=== PATIENT | male | born 1940 | race African-American/Black ===

== ENCOUNTER 2019-09-09 13:15 | Inpatient (IN) | payer MEDICARE ==
[~2019-09-09] VITALS: Ht 172.7 cm; Wt 66.2 kg
[2019-09-09] MEDS ORDERED: SODIUM CHLORIDE 0.9% 1,000 ML IV ONE (15:38)
[2019-09-09 16:28] LABS: BASOPHILS % 0.6 % (0.0-2.0); EOSINOPHILS % 1.3 % (0.0-5.0); HEMATOCRIT. 35.9 % (42.0-52.0); HEMOGLOBIN. 11.4 g/dL (14.0-18.0); LYMPHOCYTES % 16.6 % (20.0-50.0); MEAN CORPUSCULAR HEMOGLOBIN 28.1 pg (28.0-32.0); MEAN CORPUSCULAR VOLUME 88.5 fL (80.0-94.0); MEAN PLATELET VOLUME 9.2 fl (7.4-10.4); MONOCYTES % 8.7 % (2.0-8.0); NEUTROPHILS % 72.8 % (40.0-76.0); PLATELET 253 x1000/uL (130-400); RED BLOOD CELL COUNT 4.06 mill/uL (4.7-6.1); RED CELL DISTRIBUTION WIDTH 13.7 % (11.6-14.6)
[2019-09-09 16:31] LABS: CHLORIDE 107 mEq/L (98-107)
[2019-09-09 17:41] LABS: CLARITY URINE CLEAR (CLEAR); COLOR URINE YELLOW (YELLOW); KETONES URINE TRACE (NEGATIVE); LEUKOCYTE ESTERASE URINE NEGATIVE (NEGATIVE); NITRITE URINE NEGATIVE (NEGATIVE); OCCULT BLOOD URINE NEGATIVE (NEGATIVE); PH URINE 6.5 (4.5-8.0); PROTEIN URINE NEGATIVE (NEGATIVE); SPECIFIC GRAVITY URINE 1.012 (1.005-1.030); UROBILINOGEN URINE 0.2 E.U./dL (0.2-1.0)
[2019-09-09] MEDS ORDERED: POTASSIUM CHLORIDE 20MEQ TABLET SR PO ONE (17:45)
[2019-09-09] MEDS ORDERED: DOCUSATE SODIUM 100MG CAPSULE PO PRN (19:00)
[2019-09-09] MEDS ORDERED: MAGNESIUM/ALUMINUM HYDROXIDE/SIMETHICONE 30ML UDC PO PRN (19:00)
[2019-09-09] MEDS ORDERED: LORAZEPAM 2MG/ML CPJ IV PRN (19:00)
[2019-09-09] MEDS ORDERED: ACETAMINOPHEN 325MG TABLET PO PRN (19:00)
[2019-09-09] MEDS ORDERED: IPRATROPIUM/ALBUTEROL 0.5-3(2.5)MG/3ML NEB NEB PRN (19:00)
[2019-09-09] MEDS ORDERED: NA PHOS,M-B/NA PHOS,DI-BA ENEMA 118ML PR PRN (19:00)
[2019-09-09] MEDS ORDERED: GUAIFENESIN 200MG/10ML SUGAR FREE UDC PO PRN (19:00)
[2019-09-09] MEDS ORDERED: HYDRALAZINE 20MG/ML VIAL IV PRN (19:00)
[2019-09-09] MEDS ORDERED: MORPHINE SULFATE 2 MG/ML CPJ (NOT FOR IM USE) IV PRN (19:00)
[2019-09-09] MEDS ORDERED: DIPHENHYDRAMINE 50MG/ML VIAL IV PRN (19:00)
[2019-09-09] MEDS ORDERED: ONDANSETRON HCL 4MG/2ML INJ IV PRN (19:00)
[2019-09-09] MEDS ORDERED: DEXTROSE 50% WATER 50ML SYRINGE IV PRN (19:00)
[2019-09-09] MEDS ORDERED: CLONIDINE 0.1MG TABLET PO PRN (19:00)
[2019-09-09] MEDS ORDERED: HYDROCODONE/ACETAMINOPHEN 10/325MG TABLET PO PRN (19:00)
[2019-09-09] MEDS: SODIUM CHLORIDE 0.9% INJ 3ML FLUSH IVF SCH (22:00)
[2019-09-09 22:44] VITALS: BP 148/75
[2019-09-10] VITALS: BP 123/64
[2019-09-10 01:27] LABS: CREATINE KINASE 108 IU/L (39-308); CREATINE KINASE MB FRACTION 1.5 ng/mL (0.5-3.6)
[2019-09-10 04:00] VITALS: BP 133/68
[2019-09-10] MEDS: SODIUM CHLORIDE 0.9% INJ 3ML FLUSH IVF SCH (06:16)
[2019-09-10] MEDS ORDERED: BLOOD SUGAR DIAGNOSTIC STRIP TEST SCH (07:20)
[2019-09-10] MEDS ORDERED: INSULIN LISPRO 100 UNITS/ML SUBCUT SCH (07:50)
[2019-09-10 08:00] VITALS: BP 166/88
[2019-09-10] MEDS ORDERED: ENOXAPARIN 40MG/0.4ML SYR SUBCUT SCH (09:00)
[2019-09-10 09:45] LABS: BASOPHILS % 0.7 % (0.0-2.0); HEMATOCRIT. 36.9 % (42.0-52.0); HEMOGLOBIN. 11.9 g/dL (14.0-18.0); LYMPHOCYTES % 24.4 % (20.0-50.0); MEAN CORPUSCULAR HEMOGLOBIN 28.5 pg (28.0-32.0); MEAN CORPUSCULAR VOLUME 88.5 fL (80.0-94.0); MEAN PLATELET VOLUME 9.2 fl (7.4-10.4); NEUTROPHILS % 60.9 % (40.0-76.0); PLATELET 237 x1000/uL (130-400); RED BLOOD CELL COUNT 4.17 mill/uL (4.7-6.1)
[2019-09-10 09:56] LABS: CHLORIDE 108 mEq/L (98-107)
[2019-09-10 10:04] LABS: LDL CHOLESTEROL 75 mg/dL (5-100)
[2019-09-10 10:05] LABS: CREATINE KINASE 99 IU/L (39-308); CREATINE KINASE MB FRACTION 1.1 ng/mL (0.5-3.6); HDL CHOLESTEROL 60 mg/dL (40-59)
== END 2019-09-10 11:48 | disposition home or self-care (01) | DRG 637 ==
LOC: ER 13:15 → 6WST 17:47 → ENRESERV 20:36 → 6WST 23:35
PROVIDERS: ADMIT Internal Medicine; ATTEND Internal Medicine
DX: E11.649 Type 2 diabetes mellitus with hypoglycemia without coma (principal); G93.41 Metabolic encephalopathy; E87.6 Hypokalemia; I10 Essential (primary) hypertension; I25.10 Atherosclerotic heart disease of native coronary artery without angina pectoris; D64.9 Anemia, unspecified; R79.89 Other specified abnormal findings of blood chemistry
CPT/HCPCS: 36415; 71045; 80053; 80061; 81003; 82550; 82553; 82962; 83036; 83880; 84439; 84443; 84484; 85025; 93005; 93970; 99285; J0360; J1650; J7030

== ENCOUNTER 2019-10-05 13:10 | Emergency (ER) | payer MEDICARE ==
[~2019-10-05] VITALS: Ht 175.3 cm; Wt 65.0 kg
[2019-10-05 14:25] LABS: BASOPHILS % 0.6 % (0.0-2.0); EOSINOPHILS % 0.4 % (0.0-5.0); HEMATOCRIT. 41.2 % (42.0-52.0); HEMOGLOBIN. 13.8 g/dL (14.0-18.0); LYMPHOCYTES % 10.6 % (20.0-50.0); MEAN CORPUSCULAR HEMOGLOBIN 29.4 pg (28.0-32.0); MEAN CORPUSCULAR VOLUME 87.9 fL (80.0-94.0); MONOCYTES % 6.5 % (2.0-8.0); NEUTROPHILS % 81.9 % (40.0-76.0); PLATELET 245 x1000/uL (130-400); RED BLOOD CELL COUNT 4.69 mill/uL (4.7-6.1)
[2019-10-05 14:32] LABS: PROTHROMBIN TIME 11.3 sec (9.6-11.0)
[2019-10-05 14:34] LABS: CHLORIDE 106 mEq/L (98-107)
[2019-10-05 15:50] VITALS: BP 136/92
[2019-10-05] MEDS ORDERED: SODIUM CHLORIDE 0.9% 1,000 ML IV ONE (16:29)
== END 2019-10-05 19:08 | disposition home or self-care (01) ==
LOC: ER 15:02
DX: E11.649 Type 2 diabetes mellitus with hypoglycemia without coma (principal); E86.0 Dehydration; Z79.84 Long term (current) use of oral hypoglycemic drugs
CPT/HCPCS: 36415; 71045; 80053; 82962; 84484; 85025; 85610; 93005; 96360; 99285; J7030

== ENCOUNTER 2019-11-11 13:18 | Inpatient (IN) | payer MEDICARE ==
[~2019-11-11] VITALS: Ht 175.3 cm; Wt 59.0 kg
[2019-11-11] MEDS ORDERED: SODIUM CHLORIDE 0.9% 1,000 ML IV ONE (13:45)
[2019-11-11 13:48] LABS: BASOPHILS % 0.5 % (0.0-2.0); EOSINOPHILS % 0.3 % (0.0-5.0); HEMATOCRIT. 36.8 % (42.0-52.0); HEMOGLOBIN. 11.8 g/dL (14.0-18.0); LYMPHOCYTES % 25.6 % (20.0-50.0); MEAN CORPUSCULAR HEMOGLOBIN 28.8 pg (28.0-32.0); MEAN CORPUSCULAR VOLUME 89.5 fL (80.0-94.0); MEAN PLATELET VOLUME 9.2 fl (7.4-10.4); NEUTROPHILS % 62.6 % (40.0-76.0); PLATELET 202 x1000/uL (130-400); RED BLOOD CELL COUNT 4.11 mill/uL (4.7-6.1); RED CELL DISTRIBUTION WIDTH 14.4 % (11.6-14.6)
[2019-11-11 13:55] LABS: CHLORIDE 104 mEq/L (98-107)
[2019-11-11 13:56] LABS: PROTHROMBIN TIME 11.1 sec (9.6-11.0)
[2019-11-11] MEDS ORDERED: DEXTROSE 5% WATER 1,000 ML IV ONE (17:00)
[2019-11-11 21:25] VITALS: BP 134/78
[2019-11-11 21:29] VITALS: BP 134/78
[2019-11-11] MEDS ORDERED: GUAIFENESIN 200MG/10ML SUGAR FREE UDC PO PRN (21:45)
[2019-11-11] MEDS ORDERED: DIPHENHYDRAMINE 50MG/ML VIAL IV PRN (21:45)
[2019-11-11] MEDS ORDERED: DOCUSATE SODIUM 100MG CAPSULE PO PRN (21:45)
[2019-11-11] MEDS ORDERED: MORPHINE SULFATE 2 MG/ML CPJ (NOT FOR IM USE) IV PRN (21:45)
[2019-11-11] MEDS ORDERED: ACETAMINOPHEN 325MG TABLET PO PRN (21:45)
[2019-11-11] MEDS ORDERED: CLONIDINE 0.1MG TABLET PO PRN (21:45)
[2019-11-11] MEDS ORDERED: IPRATROPIUM/ALBUTEROL 0.5-3(2.5)MG/3ML NEB HHN PRN (21:45)
[2019-11-11] MEDS ORDERED: LORAZEPAM 2MG/ML CPJ IV PRN (21:45)
[2019-11-11] MEDS ORDERED: MAGNESIUM/ALUMINUM HYDROXIDE/SIMETHICONE 30ML UDC PO PRN (21:45)
[2019-11-11] MEDS ORDERED: HYDRALAZINE 20MG/ML VIAL IV PRN (21:45)
[2019-11-11] MEDS ORDERED: ONDANSETRON HCL 4MG/2ML INJ IV PRN (21:45)
[2019-11-11] MEDS ORDERED: HYDROCODONE/ACETAMINOPHEN 10/325MG TABLET PO PRN (21:45)
[2019-11-11] MEDS ORDERED: FURO20TA4 PO (21:54)
[2019-11-11] MEDS ORDERED: LABE200T28 PO (21:54)
[2019-11-11] MEDS ORDERED: GLYB6TAB3 PO (21:54)
[2019-11-11] MEDS ORDERED: GLIM4TAB36 PO (21:54)
[2019-11-11] MEDS ORDERED: TRIA1TAB94 PO (21:54)
[2019-11-11] MEDS: DEXT 5%/0.45% NACL 1000ML 1,000 ML IV SCH (22:28)
[2019-11-11 23:54] VITALS: BP 135/74
[2019-11-12 00:12] LABS: CREATINE KINASE 459 IU/L (39-308)
[2019-11-12 00:13] LABS: CREATINE KINASE MB FRACTION 2.2 ng/mL (0.5-3.6)
[2019-11-12 04:00] VITALS: BP 141/83
[2019-11-12] MEDS: SODIUM CHLORIDE 0.9% INJ 3ML FLUSH IVF SCH ×3 (05:51→20:40)
[2019-11-12 06:54] LABS: BASOPHILS % 0.4 % (0.0-2.0); EOSINOPHILS % 3.7 % (0.0-5.0); HEMATOCRIT. 31.1 % (42.0-52.0); HEMOGLOBIN. 10.2 g/dL (14.0-18.0); LYMPHOCYTES % 31.5 % (20.0-50.0); MEAN CORPUSCULAR VOLUME 88.2 fL (80.0-94.0); MEAN PLATELET VOLUME 9.5 fl (7.4-10.4); MONOCYTES % 14.1 % (2.0-8.0); NEUTROPHILS % 50.3 % (40.0-76.0); PLATELET 202 x1000/uL (130-400); RED BLOOD CELL COUNT 3.52 mill/uL (4.7-6.1); RED CELL DISTRIBUTION WIDTH 14.5 % (11.6-14.6)
[2019-11-12 06:59] LABS: CHLORIDE 108 mEq/L (98-107)
[2019-11-12 07:16] LABS: CREATINE KINASE 378 IU/L (39-308)
[2019-11-12 07:18] LABS: CREATINE KINASE MB FRACTION 1.7 ng/mL (0.5-3.6)
[2019-11-12 08:00] VITALS: BP 140/56
[2019-11-12] MEDS ORDERED: POTASSIUM CHLORIDE 20MEQ TABLET SR PO SCH (08:00)
[2019-11-12] MEDS: ENOXAPARIN 40MG/0.4ML SYR SUBCUT SCH (08:32)
[2019-11-12] MEDS: BLOOD SUGAR DIAGNOSTIC STRIP TEST SCH ×6 (11:53→20:40)
[2019-11-12 12:00] VITALS: BP 114/56
[2019-11-12] MEDS: INSULIN LISPRO 100 UNITS/ML SUBCUT SCH ×3 (13:10→20:47)
[2019-11-12] MEDS ORDERED: DEXTROSE 50% WATER 50ML SYRINGE IV PRN (13:15)
[2019-11-12 15:47] VITALS: BP 119/89
[2019-11-12 16:00] VITALS: BP 117/62
[2019-11-12] MEDS: DEXT 5%/0.45% NACL 1000ML 1,000 ML IV SCH (17:59)
[2019-11-12 19:56] VITALS: BP 131/70
[2019-11-13 00:05] VITALS: BP 127/62
[2019-11-13 04:00] VITALS: BP 133/72
[2019-11-13] MEDS: BLOOD SUGAR DIAGNOSTIC STRIP TEST SCH ×8 (05:32→21:00)
[2019-11-13] MEDS: SODIUM CHLORIDE 0.9% INJ 3ML FLUSH IVF SCH ×3 (05:32→21:30)
[2019-11-13 06:04] LABS: BASOPHILS % 0.6 % (0.0-2.0); HEMATOCRIT. 27.8 % (42.0-52.0); LYMPHOCYTES % 35.2 % (20.0-50.0); MEAN CORPUSCULAR HEMOGLOBIN 28.9 pg (28.0-32.0); MEAN CORPUSCULAR VOLUME 88.9 fL (80.0-94.0); MEAN PLATELET VOLUME 9.3 fl (7.4-10.4); MONOCYTES % 13.3 % (2.0-8.0); NEUTROPHILS % 47.9 % (40.0-76.0); PLATELET 189 x1000/uL (130-400); RED BLOOD CELL COUNT 3.13 mill/uL (4.7-6.1); RED CELL DISTRIBUTION WIDTH 14.3 % (11.6-14.6)
[2019-11-13 06:23] LABS: CHLORIDE 109 mEq/L (98-107)
[2019-11-13 08:00] VITALS: BP 128/63
[2019-11-13] MEDS: INSULIN LISPRO 100 UNITS/ML SUBCUT SCH ×4 (08:10→21:00)
[2019-11-13] MEDS: ENOXAPARIN 40MG/0.4ML SYR SUBCUT SCH (08:52)
[2019-11-13 12:00] VITALS: BP 140/71
[2019-11-13] MEDS: DEXT 5%/0.45% NACL 1000ML 1,000 ML IV SCH (13:56)
[2019-11-13 16:00] VITALS: BP 130/68
[2019-11-13 20:00] VITALS: BP 151/72
[2019-11-14 00:05] VITALS: BP 130/67
[2019-11-14 04:00] VITALS: BP 138/74
[2019-11-14] MEDS: BLOOD SUGAR DIAGNOSTIC STRIP TEST SCH ×6 (05:33→20:36)
[2019-11-14] MEDS: SODIUM CHLORIDE 0.9% INJ 3ML FLUSH IVF SCH ×2 (05:33→15:57)
[2019-11-14 08:00] VITALS: BP 135/73
[2019-11-14] MEDS: INSULIN LISPRO 100 UNITS/ML SUBCUT SCH ×4 (08:10→20:36)
[2019-11-14] MEDS: ENOXAPARIN 40MG/0.4ML SYR SUBCUT SCH (08:22)
[2019-11-14] MEDS: DEXT 5%/0.45% NACL 1000ML 1,000 ML IV SCH (09:55)
[2019-11-14 12:00] VITALS: BP 138/76
[2019-11-14 20:00] VITALS: BP 10/74
[2019-11-15] VITALS: BP 147/70
[2019-11-15] MEDS: DEXT 5%/0.45% NACL 1000ML 1,000 ML IV SCH (01:13)
[2019-11-15 04:00] VITALS: BP 136/72
[2019-11-15] MEDS: BLOOD SUGAR DIAGNOSTIC STRIP TEST SCH ×3 (06:00→07:20)
[2019-11-15] MEDS: INSULIN LISPRO 100 UNITS/ML SUBCUT SCH (07:38)
[2019-11-15 08:00] VITALS: BP 128/68
[2019-11-15] MEDS: ENOXAPARIN 40MG/0.4ML SYR SUBCUT SCH (09:00)
[2019-11-15 09:34] VITALS: BP 128/68
== END 2019-11-15 11:15 | disposition home or self-care (01) | DRG 637 ==
LOC: ER 13:34 → 7WST 17:01 → EDBEDREQSVC 17:02 → EDBEDREQ 17:02 → EDBEDREQTM 17:02 → ENRESERV 18:00 → 6EST 11-14 23:40
PROVIDERS: ADMIT Internal Medicine; ATTEND Internal Medicine
DX: E11.649 Type 2 diabetes mellitus with hypoglycemia without coma (principal); G93.41 Metabolic encephalopathy; E46 Unspecified protein-calorie malnutrition; I10 Essential (primary) hypertension; K56.41 Fecal impaction; N32.89 Other specified disorders of bladder; K44.9 Diaphragmatic hernia without obstruction or gangrene; Z79.84 Long term (current) use of oral hypoglycemic drugs; Z79.899 Other long term (current) drug therapy
CPT/HCPCS: 36415; 71045; 74176; 80048; 80053; 82550; 82553; 82962; 83036; 83605; 84484; 85025; 86850; 86900; 93005; 97162; 99291; J1650; J1815; J7030; J7070

== ENCOUNTER 2020-05-27 22:36 | Inpatient (IN) | payer MEDICARE, OTHER ==
[~2020-05-27] VITALS: Ht 175.3 cm; Wt 58.5 kg
[~2020-05-27 22:36] MED LIST: FURO20TA4 PO; GLIM4TAB36 PO; LABE200T28 PO; TRIA1TAB94 PO
[2020-05-27] MEDS ORDERED: ONDANSETRON HCL 4MG/2ML INJ IV STA (23:06)
[2020-05-27] MEDS ORDERED: SODIUM CHLORIDE 0.9% 1,000 ML IV ONE (23:15)
[2020-05-28 00:09] LABS: BASOPHILS % 0.4 % (0.0-2.0); EOSINOPHILS % 0.7 % (0.0-5.0); HEMATOCRIT. 34.6 % (42.0-52.0); HEMOGLOBIN. 11.4 g/dL (14.0-18.0); LYMPHOCYTES % 18.9 % (20.0-50.0); MEAN CORPUSCULAR HEMOGLOBIN 29.3 pg (28.0-32.0); MEAN CORPUSCULAR VOLUME 89.3 fL (80.0-94.0); MEAN PLATELET VOLUME 10.4 fl (7.4-10.4); MONOCYTES % 10.8 % (2.0-8.0); NEUTROPHILS % 69.2 % (40.0-76.0); PLATELET 179 x1000/uL (130-400); RED BLOOD CELL COUNT 3.88 mill/uL (4.7-6.1); RED CELL DISTRIBUTION WIDTH 14.5 % (11.6-14.6)
[2020-05-28 00:16] LABS: CHLORIDE 107 mEq/L (98-107)
[2020-05-28 00:23] LABS: INR 1.1; PROTHROMBIN TIME 11.3 sec (9.6-11.0)
[2020-05-28] MEDS ORDERED: MAGNESIUM CITRATE 300ML SOLUTION PO NR (01:45)
[2020-05-28 03:07] LABS: CLARITY URINE CLEAR (CLEAR); COLOR URINE YELLOW (YELLOW); KETONES URINE NEGATIVE (NEGATIVE); LEUKOCYTE ESTERASE URINE NEGATIVE (NEGATIVE); NITRITE URINE NEGATIVE (NEGATIVE); OCCULT BLOOD URINE TRACE (NEGATIVE); PH URINE 5.5 (4.5-8.0); PROTEIN URINE 2+ (NEGATIVE); SPECIFIC GRAVITY URINE 1.015 (1.005-1.030); UROBILINOGEN URINE 0.2 E.U./dL (0.2-1.0)
[2020-05-28] MEDS ORDERED: DOCUSATE SODIUM 100MG CAPSULE PO PRN (13:15)
[2020-05-28] MEDS ORDERED: ACETAMINOPHEN 325MG TABLET PO PRN (13:15)
[2020-05-28] MEDS ORDERED: MAGNESIUM/ALUMINUM HYDROXIDE/SIMETHICONE 30ML UDC PO PRN (13:15)
[2020-05-28] MEDS ORDERED: GUAIFENESIN 200MG/10ML SUGAR FREE UDC PO PRN (13:15)
[2020-05-28] MEDS ORDERED: HYDROCODONE/ACETAMINOPHEN 5/325MG TABLET PO PRN (13:15)
[2020-05-28] MEDS ORDERED: CLONIDINE 0.1MG TABLET PO PRN (13:15)
[2020-05-28] MEDS ORDERED: ONDANSETRON HCL 4MG/2ML INJ IV PRN (13:15)
[2020-05-28] MEDS ORDERED: POTASSIUM CHLORIDE 20MEQ TABLET SR PO NR (13:30)
[2020-05-28] MEDS: SODIUM CHLORIDE 0.9% 1,000 ML IV SCH ×2 (14:34→21:57)
[2020-05-28] MEDS: GLIMEPIRIDE 2MG TABLET PO SCH (14:51)
[2020-05-28] MEDS: TAMSULOSIN HCL 0.4MG SR CAPSULE PO SCH (14:51)
[2020-05-28] MEDS: ENOXAPARIN 40MG/0.4ML SYR SUBCUT SCH (14:52)
[2020-05-28] MEDS ORDERED: NA PHOS,M-B/NA PHOS,DI-BA ENEMA 118ML PR ONE (16:45)
[2020-05-28] MEDS ORDERED: SORBITOL 70% SOLN 30ML PO NR (17:00)
[2020-05-28] MEDS ORDERED: BISACODYL 5MG TABLET PO SCH (17:00)
[2020-05-28] MEDS: DOCUSATE SODIUM 100MG CAPSULE PO SCH (17:00)
[2020-05-28] MEDS: FINASTERIDE 5MG TABLET PO SCH (18:44)
[2020-05-28 20:30] VITALS: BP 147/73
[2020-05-28] MEDS: LABETALOL HCL 200MG TABLET PO SCH (21:54)
[2020-05-29] VITALS: BP 141/75
[2020-05-29 04:00] VITALS: BP 133/73
[2020-05-29] MEDS: BLOOD SUGAR DIAGNOSTIC STRIP TEST SCH ×4 (07:02→20:56)
[2020-05-29 07:10] LABS: BASOPHILS % 0.6 % (0.0-2.0); EOSINOPHILS % 3.8 % (0.0-5.0); HEMATOCRIT. 30.5 % (42.0-52.0); HEMOGLOBIN. 10.1 g/dL (14.0-18.0); LYMPHOCYTES % 24.7 % (20.0-50.0); MEAN CORPUSCULAR HEMOGLOBIN 29.2 pg (28.0-32.0); MEAN CORPUSCULAR VOLUME 88.1 fL (80.0-94.0); MEAN PLATELET VOLUME 10.3 fl (7.4-10.4); MONOCYTES % 10.7 % (2.0-8.0); NEUTROPHILS % 60.2 % (40.0-76.0); PLATELET 139 x1000/uL (130-400); RED BLOOD CELL COUNT 3.46 mill/uL (4.7-6.1); RED CELL DISTRIBUTION WIDTH 14.1 % (11.6-14.6)
[2020-05-29 07:38] LABS: CHLORIDE 112 mEq/L (98-107)
[2020-05-29 07:43] LABS: LDL CHOLESTEROL 60 mg/dL (5-100)
[2020-05-29 07:45] LABS: HDL CHOLESTEROL 54 mg/dL (40-59)
[2020-05-29] MEDS: INSULIN LISPRO 100 UNITS/ML SUBCUT SCH ×4 (07:50→21:00)
[2020-05-29 08:00] VITALS: BP 127/80
[2020-05-29] MEDS: TAMSULOSIN HCL 0.4MG SR CAPSULE PO SCH (08:49)
[2020-05-29] MEDS: GLIMEPIRIDE 2MG TABLET PO SCH (08:50)
[2020-05-29] MEDS: DOCUSATE SODIUM 100MG CAPSULE PO SCH ×2 (08:50→16:32)
[2020-05-29] MEDS: FINASTERIDE 5MG TABLET PO SCH (08:51)
[2020-05-29] MEDS: LABETALOL HCL 200MG TABLET PO SCH ×2 (08:51→20:55)
[2020-05-29] MEDS: SODIUM CHLORIDE 0.9% 1,000 ML IV SCH (08:52)
[2020-05-29] MEDS ORDERED: BISACODYL 5MG TABLET PO ONE (09:00)
[2020-05-29] MEDS ORDERED: INFLUENZA VACCINE 05/PF 0.5 ML VIAL IM ONE (10:00)
[2020-05-29] MEDS ORDERED: BISACODYL 5MG TABLET PO PRN (11:45)
[2020-05-29 12:00] VITALS: BP 120/77
[2020-05-29] MEDS: DEXT 5%/0.45% NACL KCL 10MEQ/L 1,000 ML IV SCH (12:57)
[2020-05-29] MEDS: ENOXAPARIN 40MG/0.4ML SYR SUBCUT SCH (14:02)
[2020-05-29] MEDS ORDERED: BISACODYL 5MG TABLET PO NR (15:00)
[2020-05-29 16:00] VITALS: BP 122/70
[2020-05-29 20:00] VITALS: BP 136/65
[2020-05-29] MEDS: SENNOSIDES/DOCUSATE SOD 8.6/50MG TABLET PO SCH (20:55)
[2020-05-29] MEDS: DEXTROSE 50% WATER 50ML SYRINGE IV PRN (21:59)
[2020-05-30] VITALS (7 sets, daily range): BP systolic 98–159; BP diastolic 67–81
[2020-05-30] MEDS: DEXT 5%/0.45% NACL KCL 10MEQ/L 1,000 ML IV SCH ×2 (03:23→14:36)
[2020-05-30 06:10] LABS: CHLORIDE 109 mEq/L (98-107)
[2020-05-30 06:13] LABS: BASOPHILS % 0.4 % (0.0-2.0); EOSINOPHILS % 2.6 % (0.0-5.0); HEMATOCRIT. 27.7 % (42.0-52.0); HEMOGLOBIN. 9.2 g/dL (14.0-18.0); LYMPHOCYTES % 22.4 % (20.0-50.0); MEAN CORPUSCULAR HEMOGLOBIN 29.1 pg (28.0-32.0); MEAN PLATELET VOLUME 10.1 fl (7.4-10.4); MONOCYTES % 11.4 % (2.0-8.0); NEUTROPHILS % 63.2 % (40.0-76.0); PLATELET 142 x1000/uL (130-400); RED BLOOD CELL COUNT 3.15 mill/uL (4.7-6.1); RED CELL DISTRIBUTION WIDTH 14.2 % (11.6-14.6)
[2020-05-30] MEDS: DEXTROSE 50% WATER 50ML SYRINGE IV PRN ×2 (06:57→14:36)
[2020-05-30] MEDS: BLOOD SUGAR DIAGNOSTIC STRIP TEST SCH ×4 (06:57→20:17)
[2020-05-30] MEDS: INSULIN LISPRO 100 UNITS/ML SUBCUT SCH ×4 (07:39→20:17)
[2020-05-30] MEDS ORDERED: KCL 20MEQ/100ML PREMIX 100 ML IV ONE (08:00)
[2020-05-30] MEDS ORDERED: EZ-HD SUSPENSION(BARIUM SULFATE 340GM) PO ONE (08:35)
[2020-05-30] MEDS ORDERED: BARIUM SULFATE 176 GM SUSP.RECON ONE ×2 (08:35→10:01)
[2020-05-30] MEDS: LABETALOL HCL 200MG TABLET PO SCH ×2 (09:00→20:16)
[2020-05-30] MEDS: DOCUSATE SODIUM 100MG CAPSULE PO SCH ×2 (09:00→17:00)
[2020-05-30] MEDS: TAMSULOSIN HCL 0.4MG SR CAPSULE PO SCH (09:00)
[2020-05-30] MEDS: FINASTERIDE 5MG TABLET PO SCH (09:00)
[2020-05-30] MEDS: GLIMEPIRIDE 2MG TABLET PO SCH (09:00)
[2020-05-30] MEDS: ENOXAPARIN 40MG/0.4ML SYR SUBCUT SCH (14:36)
[2020-05-30 16:11] LABS: ETHANOL BLOOD < 10 mg/dL
[2020-05-30 16:16] LABS: CREATINE KINASE 107 IU/L (39-308); T4 FREE 1.08 ng/dL (0.76-1.46)
[2020-05-30 16:20] LABS: FOLIC ACID (FOLATE) SERUM 13.2 ng/mL (>5.38)
[2020-05-30 18:25] LABS: *AMPHETAMINES SCREEN URINE NEGATIVE (NEGATIVE); *BARBITURATES SCREEN URINE NEGATIVE (NEGATIVE); *BENZODIAZEPINES SCREEN URINE NEGATIVE (NEGATIVE); *COCAINE SCREEN URINE NEGATIVE (NEGATIVE); CANNABINOID URINE SCREEN NEGATIVE (NEGATIVE); PHENCYCLIDINE URINE SCREEN NEGATIVE (NEGATIVE)
[2020-05-30 18:26] LABS: METHADONE URINE SCREEN NEGATIVE (NEGATIVE); OPIATES URINE SCREEN NEGATIVE (NEGATIVE)
[2020-05-30] MEDS: SENNOSIDES/DOCUSATE SOD 8.6/50MG TABLET PO SCH (20:16)
[2020-05-31] VITALS: BP 129/67
[2020-05-31] MEDS: DEXT 5%/0.45% NACL KCL 10MEQ/L 1,000 ML IV SCH ×3 (03:45→23:42)
[2020-05-31 04:00] VITALS: BP 140/67
[2020-05-31] MEDS: DEXTROSE 50% WATER 50ML SYRINGE IV PRN (06:00)
[2020-05-31] MEDS: BLOOD SUGAR DIAGNOSTIC STRIP TEST SCH ×4 (07:20→20:20)
[2020-05-31 07:23] LABS: BASOPHILS % 0.2 % (0.0-2.0); EOSINOPHILS % 2.8 % (0.0-5.0); HEMATOCRIT. 29.1 % (42.0-52.0); HEMOGLOBIN. 9.7 g/dL (14.0-18.0); LYMPHOCYTES % 15.2 % (20.0-50.0); MEAN CORPUSCULAR HEMOGLOBIN 29.4 pg (28.0-32.0); MEAN CORPUSCULAR VOLUME 88.6 fL (80.0-94.0); MEAN PLATELET VOLUME 10.5 fl (7.4-10.4); MONOCYTES % 10.5 % (2.0-8.0); NEUTROPHILS % 71.3 % (40.0-76.0); PLATELET 145 x1000/uL (130-400); RED BLOOD CELL COUNT 3.28 mill/uL (4.7-6.1)
[2020-05-31 07:46] LABS: CHLORIDE 106 mEq/L (98-107)
[2020-05-31] MEDS: INSULIN LISPRO 100 UNITS/ML SUBCUT SCH ×4 (07:50→20:20)
[2020-05-31 08:00] VITALS: BP 124/66
[2020-05-31] MEDS: TAMSULOSIN HCL 0.4MG SR CAPSULE PO SCH (09:00)
[2020-05-31] MEDS: DOCUSATE SODIUM 100MG CAPSULE PO SCH ×2 (09:07→17:48)
[2020-05-31] MEDS: FINASTERIDE 5MG TABLET PO SCH (09:08)
[2020-05-31] MEDS: LABETALOL HCL 200MG TABLET PO SCH ×2 (09:08→21:03)
[2020-05-31] MEDS ORDERED: POTASSIUM CHLORIDE 20MEQ TABLET SR PO NR (10:45)
[2020-05-31] MEDS: POTASSIUM CHLORIDE 20MEQ TABLET SR PO SCH (11:30)
[2020-05-31 12:00] VITALS: BP 125/61
[2020-05-31] MEDS: MAGNESIUM OXIDE 400MG TABLET PO SCH (12:41)
[2020-05-31] MEDS: ENOXAPARIN 40MG/0.4ML SYR SUBCUT SCH (14:37)
[2020-05-31 16:00] VITALS: BP 137/64
[2020-05-31 20:00] VITALS: BP 127/68
[2020-05-31] MEDS: SENNOSIDES/DOCUSATE SOD 8.6/50MG TABLET PO SCH (21:03)
[2020-06-01] VITALS: BP 148/75
[2020-06-01 04:00] VITALS: BP 138/66
[2020-06-01 06:31] LABS: HEMATOCRIT. 28.4 % (42.0-52.0); HEMOGLOBIN. 9.6 g/dL (14.0-18.0); MEAN CORPUSCULAR HEMOGLOBIN 29.5 pg (28.0-32.0); MEAN CORPUSCULAR VOLUME 87.4 fL (80.0-94.0); MEAN PLATELET VOLUME 10.6 fl (7.4-10.4); PLATELET 148 x1000/uL (130-400); RED BLOOD CELL COUNT 3.25 mill/uL (4.7-6.1); RED CELL DISTRIBUTION WIDTH 14.3 % (11.6-14.6)
[2020-06-01] MEDS: BLOOD SUGAR DIAGNOSTIC STRIP TEST SCH ×4 (06:44→21:27)
[2020-06-01 06:58] LABS: CHLORIDE 108 mEq/L (98-107)
[2020-06-01] MEDS: INSULIN LISPRO 100 UNITS/ML SUBCUT SCH ×4 (07:50→21:00)
[2020-06-01 08:00] VITALS: BP 144/74
[2020-06-01 09:07] LABS: PLATELET ESTIMATE NORMAL
[2020-06-01] MEDS: FINASTERIDE 5MG TABLET PO SCH (09:08)
[2020-06-01] MEDS: TAMSULOSIN HCL 0.4MG SR CAPSULE PO SCH (09:08)
[2020-06-01] MEDS: DOCUSATE SODIUM 100MG CAPSULE PO SCH ×2 (09:09→17:45)
[2020-06-01] MEDS: LABETALOL HCL 200MG TABLET PO SCH ×2 (09:09→21:28)
[2020-06-01] MEDS: MAGNESIUM OXIDE 400MG TABLET PO SCH (09:09)
[2020-06-01] MEDS: POTASSIUM CHLORIDE 20MEQ TABLET SR PO SCH (09:15)
[2020-06-01 12:00] VITALS: BP 134/68
[2020-06-01 16:00] VITALS: BP 123/66
[2020-06-01 20:00] VITALS: BP 127/68
[2020-06-01] MEDS: SENNOSIDES/DOCUSATE SOD 8.6/50MG TABLET PO SCH (21:27)
[2020-06-01] MEDS: DEXT 5%/0.45% NACL KCL 10MEQ/L 1,000 ML IV SCH (21:33)
[2020-06-02] VITALS (8 sets, daily range): BP systolic 135–154; BP diastolic 70–80
[2020-06-02] MEDS: BLOOD SUGAR DIAGNOSTIC STRIP TEST SCH ×4 (06:36→21:07)
[2020-06-02] MEDS: INSULIN LISPRO 100 UNITS/ML SUBCUT SCH ×4 (07:50→21:00)
[2020-06-02] MEDS: POTASSIUM CHLORIDE 20MEQ TABLET SR PO SCH (09:26)
[2020-06-02] MEDS: FINASTERIDE 5MG TABLET PO SCH (09:26)
[2020-06-02] MEDS: LABETALOL HCL 200MG TABLET PO SCH ×2 (09:26→21:11)
[2020-06-02] MEDS: DOCUSATE SODIUM 100MG CAPSULE PO SCH ×2 (09:27→17:00)
[2020-06-02] MEDS: TAMSULOSIN HCL 0.4MG SR CAPSULE PO SCH (09:27)
[2020-06-02] MEDS: DEXT 5%/0.45% NACL KCL 10MEQ/L 1,000 ML IV SCH ×2 (09:27→21:07)
[2020-06-02] MEDS: MAGNESIUM OXIDE 400MG TABLET PO SCH (09:27)
[2020-06-02 18:33] LABS: HEPATITIS B SURFACE ANTIGEN NEGATIVE
[2020-06-02 19:03] LABS: HEPATITIS A AB IGM NEGATIVE (NEGATIVE)
[2020-06-02] MEDS: SENNOSIDES/DOCUSATE SOD 8.6/50MG TABLET PO SCH (21:11)
[2020-06-02] MEDS ORDERED: IOHEXOL-300 100 ML BOTTLE ONE (23:15)
[2020-06-03] VITALS (7 sets, daily range): BP systolic 127–147; BP diastolic 67–77
[2020-06-03] MEDS: BLOOD SUGAR DIAGNOSTIC STRIP TEST SCH ×4 (06:55→21:13)
[2020-06-03] MEDS: INSULIN LISPRO 100 UNITS/ML SUBCUT SCH ×4 (07:50→21:00)
[2020-06-03] MEDS: POTASSIUM CHLORIDE 20MEQ TABLET SR PO SCH (08:59)
[2020-06-03] MEDS: DOCUSATE SODIUM 100MG CAPSULE PO SCH ×2 (08:59→17:26)
[2020-06-03] MEDS: MAGNESIUM OXIDE 400MG TABLET PO SCH (08:59)
[2020-06-03] MEDS: TAMSULOSIN HCL 0.4MG SR CAPSULE PO SCH (08:59)
[2020-06-03] MEDS: FINASTERIDE 5MG TABLET PO SCH (08:59)
[2020-06-03] MEDS: LABETALOL HCL 200MG TABLET PO SCH ×2 (09:00→21:21)
[2020-06-03] MEDS: DEXT 5%/0.45% NACL KCL 10MEQ/L 1,000 ML IV SCH (12:46)
[2020-06-03] MEDS ORDERED: SORBITOL 70% SOLN 30ML PO PRN (15:15)
[2020-06-03] MEDS: SENNOSIDES/DOCUSATE SOD 8.6/50MG TABLET PO SCH (21:20)
[2020-06-03] MEDS ORDERED: MINERAL OIL ENEMA 133ML PR NR (21:30)
[2020-06-04 04:00] VITALS: BP 142/69
[2020-06-04] MEDS: DEXT 5%/0.45% NACL KCL 10MEQ/L 1,000 ML IV SCH (06:34)
[2020-06-04] MEDS: BLOOD SUGAR DIAGNOSTIC STRIP TEST SCH ×2 (06:34→12:25)
[2020-06-04] MEDS: INSULIN LISPRO 100 UNITS/ML SUBCUT SCH ×2 (06:39→12:36)
[2020-06-04 08:00] VITALS: BP 135/63
[2020-06-04] MEDS: DOCUSATE SODIUM 100MG CAPSULE PO SCH (09:40)
[2020-06-04] MEDS: TAMSULOSIN HCL 0.4MG SR CAPSULE PO SCH (09:40)
[2020-06-04] MEDS: POTASSIUM CHLORIDE 20MEQ TABLET SR PO SCH (09:40)
[2020-06-04] MEDS: MAGNESIUM OXIDE 400MG TABLET PO SCH (09:40)
[2020-06-04] MEDS: FINASTERIDE 5MG TABLET PO SCH (09:41)
[2020-06-04] MEDS: LABETALOL HCL 200MG TABLET PO SCH (09:41)
[2020-06-04] MEDS ORDERED: LACT10SO6 MT (10:23)
[2020-06-04] MEDS ORDERED: FINA5TAB3 MT (10:23)
[2020-06-04] MEDS ORDERED: TAMS-11 MT (10:23)
[2020-06-04] MEDS ORDERED: DOCU-138 MT (10:23)
[2020-06-04 12:00] VITALS: BP 132/66
[2020-06-04 13:18] VITALS: BP 132/66
[2020-06-04 17:06] LABS: 25-HYDROXY VITAMIN D3 27 ng/mL (.)
== END 2020-06-04 13:25 | disposition home health service (06) | DRG 551 ==
LOC: ER 22:36 → 6WST 05-28 09:28 → ENRESERV 05-28 16:21 → CANRESERV 05-28 16:21 → ENRESERV 05-28 19:43 → 6EST 06-03 23:54
PROVIDERS: ADMIT Hospitalist; ATTEND Hospitalist
DX: M48.061 Spinal stenosis, lumbar region without neurogenic claudication (principal); G82.50 Quadriplegia, unspecified; G92 Toxic encephalopathy; N13.30 Unspecified hydronephrosis; G95.20 Unspecified cord compression; R64 Cachexia; Z68.1 Body mass index [BMI] 19.9 or less, adult; M48.02 Spinal stenosis, cervical region; M50.321 Other cervical disc degeneration at C4-C5 level; D64.9 Anemia, unspecified; E87.6 Hypokalemia; E11.65 Type 2 diabetes mellitus with hyperglycemia; E11.649 Type 2 diabetes mellitus with hypoglycemia without coma; K22.0 Achalasia of cardia; D17.1 Benign lipomatous neoplasm of skin and subcutaneous tissue of trunk; K62.89 Other specified diseases of anus and rectum; K22.8 Other specified diseases of esophagus; K59.00 Constipation, unspecified; M25.78 Osteophyte, vertebrae; M47.816 Spondylosis without myelopathy or radiculopathy, lumbar region; M51.36 Other intervertebral disc degeneration, lumbar region; N26.1 Atrophy of kidney (terminal); N32.89 Other specified disorders of bladder; R74.01 Elevation of levels of liver transaminase levels; Z82.49 Family history of ischemic heart disease and other diseases of the circulatory system; Z79.899 Other long term (current) drug therapy; R10.9 Unspecified abdominal pain; R79.89 Other specified abnormal findings of blood chemistry; R53.1 Weakness
CPT/HCPCS: 36415; 70551; 71045; 72128; 72141; 72146; 72148; 74018; 74176; 74177; 74220; 76770; 80053; 80061; 80305; 80320; 81003; 82105; 82140; 82306; 82378; 82550; 82607; 82746; 82962; 83036; 83605; 83735; 84439; 84443; 84481; 84484; 85025; 86301; 86705; 86709; 86803; 87340; 90686; 93970; 96374; 97116; 97162; 97166; 97530; 99285; C1893; J1650; J1815; J2405; J3480; J7030; Q9967; A4315; G0480

== ENCOUNTER 2021-01-18 20:50 | Emergency (ER) | payer MEDICARE, OTHER ==
[~2021-01-18] VITALS: Ht 175.3 cm; Wt 86.0 kg
[~2021-01-18 20:50] MED LIST changes: +DOCU-138 MT; +FINA5TAB3 MT; -FURO20TA4 PO; -LABE200T28 PO; +LABE200T9 PO; +LACT10SO6 MT; +TAMS-11 MT
[2021-01-18] MEDS ORDERED: OXYBUTYNIN CHLORIDE 5MG TABLET PO ONE (21:15)
[2021-01-18] MEDS ORDERED: ACETAMINOPHEN 325MG TABLET PO ONE (21:15)
[2021-01-18 21:26] LABS: BASOPHILS % 0.4 % (0.0-2.0); EOSINOPHILS % 8.4 % (0.0-5.0); HEMATOCRIT. 29.5 % (42.0-52.0); HEMOGLOBIN. 9.9 g/dL (14.0-18.0); LYMPHOCYTES % 28.2 % (20.0-50.0); MEAN CORPUSCULAR HEMOGLOBIN 29.3 pg (28.0-32.0); MEAN CORPUSCULAR VOLUME 87.5 fL (80.0-94.0); MEAN PLATELET VOLUME 8.2 fl (7.4-10.4); PLATELET 207 x1000/uL (130-400); RED BLOOD CELL COUNT 3.37 mill/uL (4.7-6.1); RED CELL DISTRIBUTION WIDTH 14.4 % (11.6-14.6)
[2021-01-18 21:34] LABS: CHLORIDE 108 mEq/L (98-107)
[2021-01-19 01:09] LABS: CLARITY URINE CLEAR (CLEAR); COLOR URINE YELLOW (YELLOW); KETONES URINE NEGATIVE (NEGATIVE); LEUKOCYTE ESTERASE URINE 3+ (NEGATIVE); NITRITE URINE POSITIVE (NEGATIVE); OCCULT BLOOD URINE 2+ (NEGATIVE); PROTEIN URINE 1+ (NEGATIVE); SPECIFIC GRAVITY URINE 1.015 (1.005-1.030)
[2021-01-19] MEDS ORDERED: OXYB5TAB17 MT (01:21)
[2021-01-19] MEDS ORDERED: CEPH500C2 MT (01:21)
[2021-01-19] MEDS ORDERED: CEPHALEXIN 250MG CAPSULE PO NR (01:30)
[2021-01-19 07:30] VITALS: BP 135/80
== END 2021-01-19 03:48 | disposition home or self-care (01) ==
LOC: ER 20:50
DX: N40.1 Benign prostatic hyperplasia with lower urinary tract symptoms (principal); R33.8 Other retention of urine; N39.0 Urinary tract infection, site not specified; E11.9 Type 2 diabetes mellitus without complications; I10 Essential (primary) hypertension
CPT/HCPCS: 36415; 80053; 81003; 85025; 87077; 87186; 99285; A4315

== ENCOUNTER 2021-06-30 09:00 | Emergency (ER) | payer MEDICARE, MEDICAID, OTHER ==
[~2021-06-30] VITALS: Ht 175.3 cm; Wt 75.0 kg
[~2021-06-30 09:00] MED LIST changes: +CEPH500C2 MT; +OXYB5TAB17 MT
[2021-06-30 10:33] LABS: BASOPHILS % 0.3 % (0.0-2.0); EOSINOPHILS % 0.5 % (0.0-5.0); HEMATOCRIT. 37.9 % (42.0-52.0); HEMOGLOBIN. 11.9 g/dL (14.0-18.0); LYMPHOCYTES % 17.4 % (20.0-50.0); MEAN CORPUSCULAR HEMOGLOBIN 29.5 pg (28.0-32.0); MEAN CORPUSCULAR VOLUME 93.8 fL (80.0-94.0); MEAN PLATELET VOLUME 9.5 fl (7.4-10.4); MONOCYTES % 8.5 % (2.0-8.0); NEUTROPHILS % 73.3 % (40.0-76.0); PLATELET 196 x1000/uL (130-400); RED BLOOD CELL COUNT 4.04 mill/uL (4.7-6.1); RED CELL DISTRIBUTION WIDTH 14.5 % (11.6-14.6)
[2021-06-30 10:38] LABS: CHLORIDE 107 mEq/L (98-107)
[2021-06-30 10:55] LABS: CLARITY URINE CLOUDY (CLEAR); COLOR URINE YELLOW (YELLOW); KETONES URINE TRACE (NEGATIVE); LEUKOCYTE ESTERASE URINE 3+ (NEGATIVE); NITRITE URINE NEGATIVE (NEGATIVE); OCCULT BLOOD URINE 2+ (NEGATIVE); PH URINE 5.5 (4.5-8.0); PROTEIN URINE 2+ (NEGATIVE); SPECIFIC GRAVITY URINE 1.016 (1.005-1.030); UROBILINOGEN URINE 0.2 E.U./dL (0.2-1.0)
[2021-06-30] MEDS ORDERED: CEPH250C2 MT (11:26)
[2021-06-30] MEDS ORDERED: CEFTRIAXONE 1 G PREMIX 50 ML IV SCH (11:30)
[2021-06-30] MEDS ORDERED: SODIUM CHLORIDE 0.9% 1,000 ML IV ONE (12:00)
[2021-06-30 22:19] VITALS: BP 163/86
== END 2021-06-30 23:08 | disposition home or self-care (01) ==
LOC: ER 09:24
DX: R33.9 Retention of urine, unspecified (principal); N39.0 Urinary tract infection, site not specified; N17.9 Acute kidney failure, unspecified; E11.9 Type 2 diabetes mellitus without complications; I10 Essential (primary) hypertension; Z79.899 Other long term (current) drug therapy
CPT/HCPCS: 36415; 51702; 80053; 81003; 85025; 87077; 87086; 87186; 96365; 99284; J0696; J7030; A4315